=== PATIENT | male | born 1990 | race Caucasian/White ===

== ENCOUNTER 2022-12-27 07:59 | Emergency (ER) | payer MEDICAID ==
[~2022-12-27] VITALS: Ht 172.7 cm; Wt 70.0 kg
[2022-12-27 08:14] VITALS: TEMP 98.3
[2022-12-27 08:17] VITALS: BP 116/72; PULSE 84; RESP 16
[2022-12-27 08:19] LABS: COVID AG,FIA SOURCE NASAL SWAB
[2022-12-27] MEDS ORDERED: IBUP-1554 PO (08:40)
[2022-12-27] MEDS ORDERED: ACET-66 PO (08:40)
[2022-12-27] MEDS ORDERED: GUAIFDM PO (08:40)
[2022-12-27 08:42] LABS: INFLUENZA TYPE A NEGATIVE FOR TYPE A (NEGATIVE); INFLUENZA TYPE B NEGATIVE FOR TYPE B (NEGATIVE); SARS-COV2 (COVID) ANTIGEN,FIA Negative (Negative)
== END 2022-12-27 09:12 | disposition home or self-care (01) ==
LOC: EMS 08:00
DX: J06.9 Acute upper respiratory infection, unspecified (principal); Z90.49 Acquired absence of other specified parts of digestive tract; Z20.822 Contact with and (suspected) exposure to COVID-19
CPT/HCPCS: 87804; 99283